=== PATIENT | male | born 1950 | race African-American/Black ===

== ENCOUNTER 2016-11-28 09:09 | Outpatient (CLI) | payer MEDICARE ==
[2016-11-28 12:33] LABS: #Basophils 0.1 thou/uL (0.0-0.2); #Eosinphils 0.1 thou/uL (0.0-0.7); #Lymphocytes 1.7 thou/uL (1.20-3.40); #Monocytes 0.5 thou/uL (0.11-0.59); #Neutrophils 1.9 thou/uL (1.40-6.50); %Basophils 1.2 % (0.0-1.0); %Eosinophils 3.2 % (0.0-10.0); %Lymphocytes 40.6 % (21.0-51.0); %Monocytes 10.6 % (0.0-10.0); Hematocrit 45.4 % (42.0-52.0); Mean Platelet Volume 9.3 fL (7.4-10.4); White Blood Cell (WBC) Count 4.3 thou/uL (4.8-10.8)
[2016-11-28 12:36] LABS: Prothrombin Time 14.4 SEC (12.0-14.7)
[2016-11-28 12:51] LABS: ALT (SGPT) 17 U/L (0-55); AST (SGOT) 16 U/L (5-34); Alkaline Phosphatase 203 U/L (40-150); Anion Gap 15 mmol/L (10-20); BUN (Urea Nitrogen) 22 mg/dL (8.4-25.7); Bilirubin, Direct 0.3 mg/dL (0.1-0.3); Bilirubin, Total 0.7 mg/dL (0.2-1.2); Calc. Creatinine Clearance 0 mL/min (70-130); Calcium 8.9 mg/dL (7.8-10.44); Carbon Dioxide 21 mmol/L (23-31); Chloride 109 mmol/L (98-107); Estimated GFR-MDRD 50; LDL Cholesterol, Calculated 87 mg/dL; Protein, Total 6.7 g/dL (5.8-8.1)
== END 2016-11-28 09:10 | disposition home or self-care (01) ==
LOC: NAVSJIPCSP 09:09 → EDSTATUS 11:19
PROVIDERS: ATTEND Family Medicine
DX: E11.9 Type 2 diabetes mellitus without complications (principal); E78.00 Pure hypercholesterolemia, unspecified; I10 Essential (primary) hypertension; Z79.899 Other long term (current) drug therapy
CPT/HCPCS: 36415; 80048; 80061; 80076; 83036; 84443; 85025; 85610

== ENCOUNTER 2016-12-28 16:28 | Inpatient (IN) | payer MEDICARE ==
[~2016-12-28 16:28] MED LIST: Iopamidol 370 76% 100 ML VIAL ONE
[2016-12-28] MEDS ORDERED: Ondansetron HCl/PF 4 MG/2 ML Vial ONE (17:38)
[2016-12-28] MEDS ORDERED: Ondansetron ODT 4 MG TAB ONE (18:10)
[2016-12-28 18:35] LABS: #Basophils 0.1 thou/uL (0.0-0.2); #Lymphocytes 0.5 thou/uL (1.20-3.40); #Monocytes 1.2 thou/uL (0.11-0.59); #Neutrophils 10.4 thou/uL (1.40-6.50); %Basophils 0.5 % (0.0-1.0); %Eosinophils 0.2 % (0.0-10.0); %Lymphocytes 4.1 % (21.0-51.0); %Monocytes 9.7 % (0.0-10.0); %Neutrophils 85.6 % (42.0-75.0); Hemoglobin 16.2 g/dL (14.0-18.0); Mean Corpuscular Hemoglobin 29.9 pg (27.0-31.0); Mean Corpuscular Volume 90.6 fl (80.0-94.0); Mean Platelet Volume 8.4 fL (7.4-10.4); Platelet Count 126 thou/uL (130-400); RBC Distribution Width 12.2 % (11.5-14.5); White Blood Cell (WBC) Count 12.2 thou/uL (4.8-10.8)
[2016-12-28 18:49] LABS: ALT (SGPT) 15 U/L (0-55); AST (SGOT) 12 U/L (5-34); Albumin 4.5 g/dL (3.4-4.8); Alkaline Phosphatase 161 U/L (40-150); Anion Gap 19 mmol/L (10-20); BUN (Urea Nitrogen) 17 mg/dL (8.4-25.7); Bilirubin, Total 0.9 mg/dL (0.2-1.2); Calc. Creatinine Clearance 0 mL/min (70-130); Calcium 9.4 mg/dL (7.8-10.44); Carbon Dioxide 18 mmol/L (23-31); Chloride 109 mmol/L (98-107); Estimated GFR-MDRD 49; Globulin 3.4 g/dL (2.4-3.5); Glucose 139 mg/dL (80-115); Lipase 21 U/L (8-78); Protein, Total 7.9 g/dL (5.8-8.1); Sodium 142 mmol/L (136-145)
--- NOTE | 2016-12-28 18:49 | RAD ---
ACUTE ABDOMINAL SERIES: 12/28/16 INDICATION: Nausea, vomiting. COMPARISON: None. FINDINGS: The lungs are clear. No pleural effusion or pneumothorax is evident. No pneumoperitoneum is evident. There are a few mildly prominent gas filled loops of small bowel within the central abdomen with di fferential air fluid levels which may reflect sequela of regional ileus or small bowel obstruction. CT examination is recommended for further evaluation. No acute osseous abnormality is evident. IMPRESSION: Reactive ileus versus mild to moderate partial small bowel obstruction. CT examination would be help ful for further evaluation. POS: [facility]
[2016-12-28 18:51] LABS: Troponin I Less than 0.010 ng/mL (< 0.028)
[2016-12-28 19:10] LABS: Bilirubin Negative (Negative); Blood, Urine Moderate (Negative); Glucose, Urine (Dipstick) Negative (Negative); Leukocyte Moderate (Negative); Nitrite Positive (Negative); Protein, Urine (Dipstick) Trace mg/dL (Neg-Trace); Urobilinogen 0.2 mg/dL (0.2-1.0); pH, Urine 5.5 (5.0-9.0)
[2016-12-28 19:11] LABS: Clarity SL HAZY (Clear)
[2016-12-28 19:12] LABS: Bacteria/HPF 4+ HPF (None Seen); Squamous Epithelial 0-3 HPF (0-3)
[2016-12-28] MEDS ORDERED: Sodium Chloride 0.9% 500 ML ONE (19:38)
--- NOTE | 2016-12-28 20:03 | CT ---
CT OF THE ABDOMEN AND PELVIS WITH IV CONTRAST 12/28/16 INDICATION: Concern for possible small bowel obstruction. COMPARISON: Acute abdominal series performed on 12/28/16. FINDINGS: The mildly prominent loops of small bowel are demonstrated in the current examination within the fiona tral abdomen. There is no upstream obstructive changes seen involving the proximal jejunum. There is bibasilar atelectasis. There are calcified granuloma within the spleen. Gallbladder is cont racted. The visualized pancreas is unremarkable. Adrenal glands appear within normal limits. The kidneys demonstrate bilateral renal cysts. No hydronephrosis is evident. There is a normal appendix in the right lower quadrant. The bladder wall is diffusely thickened. The prostate is enlarged. The rectum and perirectal soft tissues are unremarkable. There is scattered c olonic diverticula. The colon is largely decompressed. No pathologic enlarged lymph nodes are eviden t. There are mild scattered vascular calcifications. No suspicious osteolytic or osteoblastic lesions e vident. IMPRESSION: 1. Mildly prominent loops of small bowel within the central abdomen without transition zone or upstream obstructive changes may reflect a regional ileus from an enteritis. 2. Wall thickening involving the bladder may reflect changes of chronic bladder outlet obstruct ion. The prostate is enlarged. The overlying cystitis cannot be entirely excluded. 3. Bilateral renal cysts. 4. Findings of prior granulomatous disease. 5. Colonic diverticulosis. POS: [facility]
[2016-12-28] MEDS ORDERED: Sodium Chloride 0.9% 0 ML ONE (20:15)
[2016-12-28] MEDS ORDERED: cefTRIAXone\\ROCEPHIN 1 GM VIAL ONE (20:15)
[2016-12-28] MEDS ORDERED: Sodium Chloride 0.9% 100 ML ONE (20:15)
[2016-12-28] MEDS ORDERED: Acetaminophen 325 MG TAB PO PRN (21:39)
[2016-12-28] MEDS ORDERED: Ondansetron HCl/PF 4 MG/2 ML Vial IVP PRN (21:39)
[2016-12-28] MEDS ORDERED: Ondansetron ODT 4 MG TAB SL PRN (21:39)
[2016-12-28] MEDS ORDERED: Sodium Chloride 0.45% 1,000 ML IV SCH (21:45)
[2016-12-28] MEDS ORDERED: Dextrose 50% Abboject 50 ML SYRINGE IVP PRN (22:26)
[2016-12-28] MEDS ORDERED: HumaLOG 300 UNITS/3 ML VIAL SC PRN ×2 (22:26)
[2016-12-28] MEDS ORDERED: Dextrose 5% in Water 1,000 ML IV PRN (22:26)
[2016-12-28 23:05] LABS: INR-International Normal Ratio 1.1; Prothrombin Time 14.8 SEC (12.0-14.7)
[2016-12-28] MEDS ORDERED: Atorvastatin Calcium 20 MG TAB PO SCH (23:45)
[2016-12-28] MEDS ORDERED: Warfarin Sodium 5 MG TAB PO SCH (23:45)
[2016-12-29 00:02] VITALS: BMI 40.0
--- NOTE | 2016-12-29 07:21 | SS ---
DATE OF DISCHARGE: 12/29/2016 HISTORY OF PRESENT ILLNESS: Mr. Pedersen is a 66-year-old black male patient of mine that has actually missed his last 2 followup appointments with me. He has also missed several appointments with his specialist. The patient presented to the emergency room complaining of nausea, retching and rectal pain. He states he usually has 2 to 3 soft bowel movements every day, he only had 1 this morning and after that he has had significant problems. He became nauseated and started retching. Mid abdominal pain and some rectal pain and urgency. No fever. He states he has had some dysuria off and on with a history of enlarged prostate in the past was sometimes vomiting. He took some Dulcolax earlier. He was seen by Dr. Robert Hernandez in the ER, given some IV fluids, was able to control his nausea, but not his pain. He was somewhat constipated and found to have an early urinary tract infection. He was given IV Rocephin in the ER and was admitted. He was given some IV hydration and this morning when I am seeing him, he states he feels much better. He had a full meal at 4:00 this morning, he was very hungry and the family members and nurse found some food for him to eat. He tolerated that very well. He had a large bowel movement, states he feels much better. States he has no complaints and states he would like to go home. VITAL SIGNS: Vital signs this morning reveal blood pressure 177/84, pulse 91, respirations 19, O2 sat 97%, temperature 98.6. The patient is noted to be very noncompliant with his medications. His INR was 1.1. He is supposed to be taking his warfarin 5 mg daily, but he states he misses it quite a bit. PRESENT MEDICATIONS: 1. Warfarin 5 mg once a day at bedtime. 2. Diltiazem ER 240 mg once a day in the morning. 3. Spironolactone 25 mg once a day. 4. He is supposed to be on furosemide 20 mg once daily. 5. Potassium chloride extended release 20 mEq 2 tablets daily. 6. Simvastatin 40 mg every evening. 7. Metformin 500 mg extended release b.i.d. with meals. 8. Tamsulosin 0.4 mg once a day. 9. Duloxetine 30 mg daily. 10. The patient received Rocephin yesterday. PAST MEDICAL HISTORY: 1. Hypertension. 2. Diabetes type 2. 3. Hypercholesterolemia. 4. Asbestosis. 5. Benign prostatic hypertrophy. 6. History of pulmonary embolism. PAST SURGICAL HISTORY: Reveals the patient had a foot surgery on his fractured ankle in 2005. FAMILY HISTORY: Reveals the patient's mother with cancer. The patient's father with cancer. The patient does not have any children. Family history is positive for cancer. SOCIAL HISTORY: The patient does not smoke, does not drink, does not use drugs. His Pneumovax is today. ALLERGIES: The patient has no known drug allergies. REVIEW OF SYSTEMS: Reveal the patient has not had any fever or chills. Denies any night sweats or weight changes. Denies any headache, change in hearing or change in vision. He does complain of some fatigue, that was yesterday, but states he feels better today. The patient denies any cough, cold, congestion or productive sputum. The patient denies any edema, dyspnea on exertion, shortness of breath, chest pain, orthopnea, or claudication. The patient does admit to constipation, that was the reason why came in and nausea with retching , but no actual vomiting. Denies any dysphasia. Denies any melena, denies any hematemesis, denies any hematochezia. domingo the patient states he has off and on decreased stream, but has not had urinary retention. Denies any dysuria. Denies any incontinence. Musculoskeletal domingo the patient states he has no significant change in his joint pains or stiffness with arthritis. Denies any skin changes, jaundice or lesions. The patient states his allergies have been under pretty good control. Denies any dizziness, syncope, sensation loss or focal loss. PHYSICAL EXAMINATION: GENERAL: This is a well-developed, well-nourished, obese black male in no apparent distress at this time. He states he feels much better, he is back to his normal, would like to go home. HEENT: Reveals normocephalic, nontraumatic cranium. Pupils are equally round and reactive. Extraocular movements intact. Nose and throat are slightly dry. NECK: Supple, without mass, nodes or bruits. No jugular venous distention is noted. LUNGS: Chest is clear to auscultation. No rales, rhonchi or wheezes are heard. No cough is noted. HEART: Reveals a regular rate and rhythm without murmurs, gallops or rubs. ABDOMEN: Obese, soft, nontender, without organomegaly. Normal bowel sounds are present in all quadrants. No rebound or guarding is noted. No CVA tenderness is noted. : Deferred. EXTREMITIES: Reveal no clubbing, cyanosis or edema. Peripheral pulses are equal, no significant edema is noted. NEUROLOGIC: His exam is grossly unremarkable with no focal findings. IMPRESSION: 1. Mild urinary tract infection. 2. Nausea with retching, resolved. 3. Constipation, resolved. 4. Poor appetite because of the nausea and retching, resolved. 5. Hypertension. 6. Diabetes type 2. 7. Pulmonary embolism, supposedly on warfarin for which he has been noncompliant and his INR has been 1. We did address that. 8. Benign prostatic hypertrophy. 9. Asbestosis. 10. Hypercholesterolemia. 11. Urinary tract infection. PLAN: The patient will be discharged this morning. We will place him on Cipro 500 mg twice a day for his urinary tract infection or possibly BPH. He already has an appointment with me in a couple of weeks. 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 Ffollow up with his other specialists that he has seen in the past. SANDRA
[2016-12-29 07:29] VITALS: BP 122/72; TEMP 95.5
[2016-12-29] MEDS ORDERED: cefTRIAXone\\ROCEPHIN 1 GM in Sodium Chloride 0.9% 100 ML IVPB SCH (08:00)
[2016-12-29] MEDS ORDERED: Spironolactone 50 MG TAB PO SCH (08:00)
[2016-12-29] MEDS ORDERED: Potassium Chloride 20 MEQ TAB PO SCH (08:00)
[2016-12-29] MEDS ORDERED: Tamsulosin HCl 0.4 MG CAP PO SCH (09:00)
[2016-12-29] MEDS ORDERED: Docusate 100 MG CAP PO SCH (09:00)
[2016-12-29] MEDS ORDERED: Warfarin Sodium 5 MG TAB PO SCH (17:00)
[2016-12-29] MEDS ORDERED: Atorvastatin Calcium 20 MG TAB PO SCH (21:00)
== END 2016-12-29 10:35 | disposition home health service (06) | DRG 690 ==
LOC: NAV ERS 16:28 → NAV ACUTE 20:59
PROVIDERS: ADMIT Family Medicine; ATTEND Family Medicine
DX: N39.0 Urinary tract infection, site not specified (principal); I11.0 Hypertensive heart disease with heart failure; I50.9 Heart failure, unspecified; N40.1 Benign prostatic hyperplasia with lower urinary tract symptoms; R30.0 Dysuria; E11.9 Type 2 diabetes mellitus without complications; E78.5 Hyperlipidemia, unspecified; Z91.14 Patient's other noncompliance with medication regimen; E66.9 Obesity, unspecified; K59.00 Constipation, unspecified; Z86.711 Personal history of pulmonary embolism; J61 Pneumoconiosis due to asbestos and other mineral fibers; R11.2 Nausea with vomiting, unspecified
CPT/HCPCS: 36416; 74022; 74177; 80053; 81003; 81015; 82553; 83690; 84484; 85025; 85610; 87077; 87086; 87186; 96365; 36415-59; J0696; J2405; J7050; Q0162

== ENCOUNTER 2017-02-15 09:13 | Outpatient (CLI) | payer MEDICARE ==
[2017-02-15 12:33] LABS: #Eosinphils 0.1 thou/uL (0.0-0.7); #Lymphocytes 1.5 thou/uL (1.20-3.40); #Monocytes 0.5 thou/uL (0.11-0.59); #Neutrophils 1.9 thou/uL (1.40-6.50); %Basophils 0.9 % (0.0-1.0); %Eosinophils 2.3 % (0.0-10.0); %Lymphocytes 38.2 % (21.0-51.0); %Monocytes 11.1 % (0.0-10.0); %Neutrophils 47.5 % (42.0-75.0); Hemoglobin 14.4 g/dL (14.0-18.0); Mean Corpuscular HGB CONC 32.6 g/dL (32.0-36.0); Mean Corpuscular Volume 88.8 fl (80.0-94.0); Platelet Count 181 thou/uL (130-400); RBC Distribution Width 12.4 % (11.5-14.5); Red Blood Cell (RBC) Count 4.97 mill/uL (4.70-6.10)
[2017-02-15 13:07] LABS: ALT (SGPT) 14 U/L (8-55); AST (SGOT) 13 U/L (5-34); Albumin 4.2 g/dL (3.4-4.8); Alkaline Phosphatase 151 U/L (40-150); Anion Gap 16 mmol/L (10-20); BUN (Urea Nitrogen) 17 mg/dL (8.4-25.7); Bilirubin, Direct 0.3 mg/dL (0.1-0.3); Bilirubin, Total 0.7 mg/dL (0.2-1.2); Calc. Creatinine Clearance 0 mL/min (70-130); Carbon Dioxide 19 mmol/L (23-31); Cardiac Risk 4.8 (Less than 4.5); Chloride 109 mmol/L (98-107); Cholesterol 158 mg/dl (< 200 Desired); Estimated GFR-MDRD 53; Glucose 121 mg/dL (80-115); HDL Cholesterol 33 mg/dL (>60 Neg Risk); LDL Cholesterol, Calculated 96 mg/dL; Potassium 4.1 mmol/L (3.5-5.1); Protein, Total 7.1 g/dL (5.8-8.1); Sodium 140 mmol/L (136-145); Triglycerides 146 mg/dL (Less than 150)
[2017-02-15 13:34] LABS: Hemoglobin A1c 6.1 % (4.0-6.0)
[2017-02-15 13:44] LABS: INR-International Normal Ratio 1.1; Prothrombin Time 14.5 SEC (12.0-14.7)
== END 2017-02-15 09:14 | disposition home or self-care (01) ==
LOC: NAVSJIPCSP 09:13
PROVIDERS: ATTEND Family Medicine
DX: E78.00 Pure hypercholesterolemia, unspecified (principal); E11.9 Type 2 diabetes mellitus without complications; I10 Essential (primary) hypertension; Z79.899 Other long term (current) drug therapy
CPT/HCPCS: 36415; 80048; 80061; 80076; 83036; 84443; 85025; 85610

== ENCOUNTER 2017-04-30 15:38 | Emergency (ER) | payer OTHER, SELFPAY ==
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
== END 2017-04-30 17:30 | disposition home or self-care (01) ==
LOC: NAV ERS 15:38
DX: S16.1XXA Strain of muscle, fascia and tendon at neck level, initial encounter (principal); S29.012A Strain of muscle and tendon of back wall of thorax, initial encounter; E11.9 Type 2 diabetes mellitus without complications; E78.5 Hyperlipidemia, unspecified; I11.0 Hypertensive heart disease with heart failure; I50.9 Heart failure, unspecified; Z79.84 Long term (current) use of oral hypoglycemic drugs; Z79.01 Long term (current) use of anticoagulants; Z79.899 Other long term (current) drug therapy; V49.9XXA Car occupant (driver) (passenger) injured in unspecified traffic accident, initial encounter
CPT/HCPCS: 72125; 72128

== ENCOUNTER 2017-05-28 09:04 | Outpatient (CLI) | payer MEDICARE ==
[2017-05-28 12:53] LABS: #Eosinphils 0.1 thou/uL (0.0-0.7); #Lymphocytes 1.7 thou/uL (1.20-3.40); #Monocytes 0.4 thou/uL (0.11-0.59); %Basophils 1.1 % (0.0-1.0); %Eosinophils 2.2 % (0.0-10.0); %Lymphocytes 39.7 % (21.0-51.0); %Neutrophils 46.9 % (42.0-75.0); Hemoglobin 15.2 g/dL (14.0-18.0); Mean Corpuscular HGB CONC 32.9 g/dL (32.0-36.0); Mean Corpuscular Hemoglobin 29.6 pg (27.0-31.0); Mean Corpuscular Volume 89.9 fl (80.0-94.0); Mean Platelet Volume 8.5 fL (7.4-10.4); Platelet Count 157 thou/uL (130-400); RBC Distribution Width 11.9 % (11.5-14.5); Red Blood Cell (RBC) Count 5.13 mill/uL (4.70-6.10); White Blood Cell (WBC) Count 4.2 thou/uL (4.8-10.8)
[2017-05-28 13:12] LABS: ALT (SGPT) 19 U/L (8-55); AST (SGOT) 19 U/L (5-34); Albumin 4.2 g/dL (3.4-4.8); Alkaline Phosphatase 142 U/L (40-150); Anion Gap 15 mmol/L (10-20); BUN (Urea Nitrogen) 16 mg/dL (8.4-25.7); Bilirubin, Direct 0.3 mg/dL (0.1-0.3); Calc. Creatinine Clearance 0 mL/min (70-130); Calcium 9.2 mg/dL (7.8-10.44); Carbon Dioxide 20 mmol/L (23-31); Cardiac Risk 4.6 (Less than 4.5); Chloride 109 mmol/L (98-107); Cholesterol 151 mg/dl (< 200 Desired); Estimated GFR-MDRD 56; Glucose 122 mg/dL (80-115); HDL Cholesterol 33 mg/dL (>60 Neg Risk); LDL Cholesterol, Calculated 84 mg/dL; Potassium 4.1 mmol/L (3.5-5.1); Protein, Total 7.4 g/dL (5.8-8.1); Sodium 140 mmol/L (136-145); Triglycerides 171 mg/dL (Less than 150)
[2017-05-28 13:35] LABS: Bilirubin Negative (Negative); Blood, Urine Trace (Negative); Clarity Clear (Clear); Glucose, Urine (Dipstick) Negative (Negative); Leukocyte Negative (Negative); Nitrite Negative (Negative); Protein, Urine (Dipstick) Negative (Neg-Trace); Specific Gravity, Urine 1.015 (1.005-1.030); Urobilinogen 0.2 mg/dL (0.2-1.0); pH, Urine 5.5 (5.0-9.0)
[2017-05-28 13:36] LABS: Hemoglobin A1c 6.2 % (4.0-6.0)
[2017-05-28 13:59] LABS: Bacteria/HPF None Seen HPF (None Seen); RBC/HPF 0-3 HPF (0-3); Squamous Epithelial 0-3 HPF (0-3); WBC/HPF None Seen HPF (0-3)
[2017-05-28 16:32] LABS: INR-International Normal Ratio 1.1; Prothrombin Time 14.3 SEC (12.0-14.7)
== END 2017-05-28 09:05 | disposition home or self-care (01) ==
LOC: NAVSJIPCSP 09:04
PROVIDERS: ATTEND Family Medicine
DX: E11.9 Type 2 diabetes mellitus without complications (principal); I11.0 Hypertensive heart disease with heart failure; I50.9 Heart failure, unspecified; Z79.899 Other long term (current) drug therapy
CPT/HCPCS: 36415; 80048; 80061; 80076; 81003; 81015; 83036; 84443; 85025; 85610

== ENCOUNTER 2018-02-02 20:31 | Emergency (ER) | payer MEDICARE, OTHER | END 2018-02-02 21:35 | disposition home or self-care (01) | LOC: NAV ERS 20:31 | DX: N40.1 Benign prostatic hyperplasia with lower urinary tract symptoms (principal); R33.8 Other retention of urine; E11.9 Type 2 diabetes mellitus without complications; E78.5 Hyperlipidemia, unspecified; I11.0 Hypertensive heart disease with heart failure; I50.9 Heart failure, unspecified | CPT/HCPCS: 51703 ==

== ENCOUNTER 2018-08-29 10:44 | Outpatient (CLI) | payer MEDICARE ==
[2018-08-29 11:01] LABS: INR-International Normal Ratio 1.1; Prothrombin Time 14.5 SEC (12.0-14.7)
== END 2018-08-29 10:45 | disposition home or self-care (01) ==
LOC: NAV LABSP 10:44
PROVIDERS: ATTEND Nurse Practitioner Adult Health
DX: Z51.81 Encounter for therapeutic drug level monitoring (principal); I27.82 Chronic pulmonary embolism; I50.9 Heart failure, unspecified; Z79.899 Other long term (current) drug therapy; Z79.01 Long term (current) use of anticoagulants
CPT/HCPCS: 85610

== ENCOUNTER 2019-09-22 15:57 | Emergency (ER) | payer MEDICARE ==
[2019-09-22 16:56] LABS: ALT (SGPT) 27 U/L (8-55); AST (SGOT) 20 U/L (5-34); Albumin 4.4 g/dL (3.4-4.8); Alkaline Phosphatase 249 U/L (40-110); Anion Gap 15 mmol/L (10-20); BUN (Urea Nitrogen) 16 mg/dL (8.4-25.7); Bilirubin, Total 0.3 mg/dL (0.2-1.2); CK (CPK) 259 U/L (30-200); Calc. Creatinine Clearance 0 mL/min (70-130); Carbon Dioxide 22 mmol/L (23-31); Chloride 108 mmol/L (98-107); Estimated GFR-MDRD 50; Globulin 2.8 g/dL (2.4-3.5); Glucose 139 mg/dL (80-115); Potassium 3.8 mmol/L (3.5-5.1); Protein, Total 7.2 g/dL (5.8-8.1); Sodium 141 mmol/L (136-145)
[2019-09-22 17:13] LABS: Eosinophils 3 % (0-10); Hemoglobin 14.6 g/dL (14.0-18.0); Lymphocytes 38 % (21-51); MDiff Complete? YES; Mean Corpuscular Hemoglobin 29.9 pg (27.0-31.0); Mean Corpuscular Volume 90.6 fL (78.0-98.0); Mean Platelet Volume 8.7 fL (7.4-10.4); Monocytes 8 % (0-10); Neutrophil 49 % (42-75); Platelet Count 169 thou/uL (130-400); RBC Distribution Width 11.8 % (11.5-14.5); Reactive Lymphocytes 1 % (0-10); Red Blood Cell (RBC) Count 4.88 mill/uL (4.70-6.10); White Blood Cell (WBC) Count 4.3 thou/uL (4.8-10.8)
--- NOTE | 2019-09-22 18:01 | RAD ---
PORTABLE AP CHEST X-RAY: HISTORY: Shortness of breath and dyspnea. COMPARISON: 08/21/2016 FINDINGS: The cardiac silhouette is magnified by projection but stable in size. The pulmonary vasculature is wi thin normal limits. The left inferior costophrenic angle is incompletely imaged, but no large pleural effusion is seen. No consolidation is identified. No other interval change. IMPRESSION: No acute cardiopulmonary process. POS: [facility]
== END 2019-09-22 17:45 | disposition home or self-care (01) ==
LOC: NAV ERS 15:57
DX: R06.02 Shortness of breath (principal); I11.0 Hypertensive heart disease with heart failure; I50.9 Heart failure, unspecified; E11.9 Type 2 diabetes mellitus without complications; E78.5 Hyperlipidemia, unspecified; E78.00 Pure hypercholesterolemia, unspecified; Z79.899 Other long term (current) drug therapy
CPT/HCPCS: 71045; 80053; 82550; 83880; 84484; 85025; 85379; 93005

== ENCOUNTER 2021-03-09 08:00 | Emergency (ER) | payer MEDICARE ==
[2021-03-09 09:14] LABS: Hemoglobin 13.4 g/dL (14.0-18.0); Lymphocytes 23 % (21-51); MDiff Complete? YES; Mean Corpuscular HGB CONC 31.8 g/dL (32.0-36.0); Mean Corpuscular Hemoglobin 29.3 pg (27.0-31.0); Mean Corpuscular Volume 92.1 fL (78.0-98.0); Mean Platelet Volume 10.1 fL (7.4-10.4); Monocytes 13 % (0-10); Neutrophil 64 % (42-75); Platelet Count 143 thou/uL (130-400); Platelet Morphology Comment Appears Adequate; Red Blood Cell (RBC) Count 4.59 mill/uL (4.70-6.10); White Blood Cell (WBC) Count 3.9 thou/uL (4.8-10.8)
[2021-03-09 09:28] LABS: ALT (SGPT) 16 U/L (8-55); AST (SGOT) 13 U/L (5-34); Albumin 3.8 g/dL (3.4-4.8); Alkaline Phosphatase 160 U/L (40-110); Anion Gap 13 mmol/L (10-20); BUN (Urea Nitrogen) 8 mg/dL (8.4-25.7); Bilirubin, Total 0.8 mg/dL (0.2-1.2); Calc. Creatinine Clearance 0 mL/min (70-130); Calcium 8.2 mg/dL (7.8-10.44); Carbon Dioxide 22 mmol/L (23-31); Chloride 107 mmol/L (98-107); Globulin 2.6 g/dL (2.4-3.5); Glucose 245 mg/dL (83-110); Lipase 21 U/L (8-78); Potassium 3.6 mmol/L (3.5-5.1); Protein, Total 6.4 g/dL (5.8-8.1); Sodium 138 mmol/L (136-145)
[2021-03-09] MEDS ORDERED: Sodium Chloride 0.9% 1,000 ML ONE (09:39)
[2021-03-09] MEDS ORDERED: Pantoprazole 40 MG VIAL ONE (10:18)
[2021-03-09] MEDS ORDERED: Aspirin Chewable 81 MG TAB ONE (10:18)
[2021-03-09 10:49] LABS: Bilirubin Negative (Negative); Blood, Urine Trace (Negative); Clarity Clear (Clear); Glucose, Urine (Dipstick) 500 mg/dL (Negative); Ketone, Urine Negative (Negative); Leukocyte Negative (Negative); Nitrite Negative (Negative); Protein, Urine (Dipstick) Negative (Neg-Trace); Urobilinogen 0.2 mg/dL (Less than 2); pH, Urine 5.5 (5.0-9.0)
[2021-03-09] MEDS ORDERED: Sodium Chloride 0.9% 100 ML ONE (11:07)
[2021-03-09] MEDS ORDERED: Cefepime 2 GM VIAL ONE (11:07)
[2021-03-09 11:09] LABS: Bacteria/HPF Rare-Few HPF (None Seen); RBC/HPF 0-3 HPF (0-3); Squamous Epithelial None Seen HPF (0-3); WBC/HPF 0-3 HPF (0-3)
[2021-03-09 12:49] LABS: SARS-CoV-2 NAA Rapid Test DETECTED (NotDetected)
== END 2021-03-09 15:30 | disposition short-term general hospital (02) ==
LOC: NAV ERS 08:00
DX: A41.9 Sepsis, unspecified organism (principal); U07.1 COVID-19; R07.9 Chest pain, unspecified; I11.0 Hypertensive heart disease with heart failure; I50.9 Heart failure, unspecified; E11.9 Type 2 diabetes mellitus without complications; E78.5 Hyperlipidemia, unspecified; E78.00 Pure hypercholesterolemia, unspecified; Z79.84 Long term (current) use of oral hypoglycemic drugs; Z79.899 Other long term (current) drug therapy
CPT/HCPCS: 0240U; 71045; 74177; 80053; 83605; 83690; 83880; 84484 ×2; 85025; 85379; 87040; 93005; 96365; 96375; 99285; 81003; 81015; C9113; J0692; J3490; J7050

== ENCOUNTER 2021-03-16 21:11 | Inpatient (IN) | payer MEDICARE ==
[2021-03-16] MEDS ORDERED: Acetaminophen 325 MG TAB PO PRN (22:27)
[2021-03-16] MEDS ORDERED: Ondansetron ODT 4 MG TAB PO PRN (22:29)
[2021-03-16] MEDS ORDERED: Dextrose 5% in Water 1,000 ML IV PRN (22:30)
[2021-03-16] MEDS ORDERED: HumaLOG 300 UNITS/3 ML VIAL SC PRN (22:30)
[2021-03-16] MEDS ORDERED: Dextrose 50% Abboject 50 ML SYRINGE IVP PRN (22:30)
[2021-03-17] MEDS: HumaLOG 300 UNITS/3 ML VIAL SC PRN (05:20)
[2021-03-17 05:36] LABS: Anion Gap 14 mmol/L (10-20); BUN (Urea Nitrogen) 15 mg/dL (8.4-25.7); Calc. Creatinine Clearance 97 mL/min (70-130); Calcium 8.7 mg/dL (7.8-10.44); Carbon Dioxide 21 mmol/L (23-31); Chloride 105 mmol/L (98-107); Glucose 170 mg/dL (83-110); Potassium 3.8 mmol/L (3.5-5.1); Sodium 136 mmol/L (136-145)
[2021-03-17 05:38] LABS: Band 2 % (5-11); Hemoglobin 14.4 g/dL (14.0-18.0); Lymphocytes 43 % (21-51); MDiff Complete? YES; Mean Corpuscular HGB CONC 31.1 g/dL (32.0-36.0); Mean Corpuscular Hemoglobin 28.6 pg (27.0-31.0); Mean Platelet Volume 7.4 fL (7.4-10.4); Monocytes 9 % (0-10); Neutrophil 46 % (42-75); Platelet Count 234 thou/uL (130-400); Platelet Morphology Comment Appears Adequate; RBC Distribution Width 11.4 % (11.5-14.5); RBC Morphology Normal; Red Blood Cell (RBC) Count 5.04 mill/uL (4.70-6.10); White Blood Cell (WBC) Count 4.3 thou/uL (4.8-10.8)
[2021-03-17] MEDS: metFORMIN 500 MG TAB PO SCH ×2 (08:47→17:31)
[2021-03-17] MEDS: Finasteride 5 MG TAB PO SCH (08:47)
[2021-03-17] MEDS: Spironolactone 25 MG TAB PO SCH (08:47)
[2021-03-17] MEDS: Lisinopril 10 MG TAB PO SCH (08:47)
[2021-03-17] MEDS: Tamsulosin HCl 0.4 MG CAP PO SCH (08:47)
[2021-03-17] MEDS: Fluticasone Propionate Nasal Spray 16 gm Bottle NASAL SCH (08:48)
[2021-03-17] MEDS ORDERED: Loperamide HCl 2 MG CAP PO PRN (16:37)
[2021-03-17] MEDS: Atorvastatin Calcium 20 MG TAB PO SCH (21:12)
[2021-03-17] MEDS: Loratadine 10 MG TAB PO SCH (21:13)
[2021-03-17] MEDS: Melatonin 3 MG TAB PO PRN (21:33)
[2021-03-18] MEDS: Fluticasone Propionate Nasal Spray 16 gm Bottle NASAL SCH (08:14)
[2021-03-18] MEDS: metFORMIN 500 MG TAB PO SCH ×2 (08:16→16:59)
[2021-03-18] MEDS: Tamsulosin HCl 0.4 MG CAP PO SCH (08:16)
[2021-03-18] MEDS: Spironolactone 25 MG TAB PO SCH (08:16)
[2021-03-18] MEDS: Lisinopril 10 MG TAB PO SCH (08:17)
[2021-03-18] MEDS: Finasteride 5 MG TAB PO SCH (08:17)
[2021-03-18] MEDS: HumaLOG 300 UNITS/3 ML VIAL SC PRN ×2 (12:49→16:58)
[2021-03-18] MEDS: Loratadine 10 MG TAB PO SCH (21:12)
[2021-03-18] MEDS: Atorvastatin Calcium 20 MG TAB PO SCH (21:12)
[2021-03-18] MEDS: Melatonin 3 MG TAB PO PRN (21:12)
[2021-03-19] MEDS: metFORMIN 500 MG TAB PO SCH ×2 (08:41→16:40)
[2021-03-19] MEDS: Tamsulosin HCl 0.4 MG CAP PO SCH (08:42)
[2021-03-19] MEDS: Spironolactone 25 MG TAB PO SCH (08:42)
[2021-03-19] MEDS: Lisinopril 10 MG TAB PO SCH (08:42)
[2021-03-19] MEDS: Finasteride 5 MG TAB PO SCH (08:42)
[2021-03-19] MEDS: Fluticasone Propionate Nasal Spray 16 gm Bottle NASAL SCH (08:43)
[2021-03-19] MEDS: HumaLOG 300 UNITS/3 ML VIAL SC PRN ×2 (12:44→16:46)
[2021-03-19] MEDS: Melatonin 3 MG TAB PO PRN (20:55)
[2021-03-19] MEDS: Loratadine 10 MG TAB PO SCH (20:55)
[2021-03-19] MEDS: Atorvastatin Calcium 20 MG TAB PO SCH (20:55)
[2021-03-20 02:29] VITALS: BMI 41.1
[2021-03-20] MEDS: HumaLOG 300 UNITS/3 ML VIAL SC PRN ×2 (05:47→12:26)
[2021-03-20] MEDS: Tamsulosin HCl 0.4 MG CAP PO SCH (08:58)
[2021-03-20] MEDS: Spironolactone 25 MG TAB PO SCH (08:58)
[2021-03-20] MEDS: Finasteride 5 MG TAB PO SCH (08:58)
[2021-03-20] MEDS: metFORMIN 500 MG TAB PO SCH ×2 (08:58→17:34)
[2021-03-20] MEDS: Lisinopril 10 MG TAB PO SCH (08:59)
[2021-03-20] MEDS: Fluticasone Propionate Nasal Spray 16 gm Bottle NASAL SCH (08:59)
[2021-03-20] MEDS: Melatonin 3 MG TAB PO PRN (20:57)
[2021-03-20] MEDS: Atorvastatin Calcium 20 MG TAB PO SCH (20:57)
[2021-03-20] MEDS: Loratadine 10 MG TAB PO SCH (20:57)
[2021-03-21] MEDS: metFORMIN 500 MG TAB PO SCH ×2 (09:27→17:50)
[2021-03-21] MEDS: Tamsulosin HCl 0.4 MG CAP PO SCH (09:27)
[2021-03-21] MEDS: Spironolactone 25 MG TAB PO SCH (09:27)
[2021-03-21] MEDS: Finasteride 5 MG TAB PO SCH (09:27)
[2021-03-21] MEDS: Lisinopril 10 MG TAB PO SCH (09:28)
[2021-03-21] MEDS: Fluticasone Propionate Nasal Spray 16 gm Bottle NASAL SCH (09:31)
[2021-03-21] MEDS: Loratadine 10 MG TAB PO SCH (21:40)
[2021-03-21] MEDS: Atorvastatin Calcium 20 MG TAB PO SCH (21:40)
[2021-03-22] MEDS: HumaLOG 300 UNITS/3 ML VIAL SC PRN ×2 (05:58→13:30)
[2021-03-22] MEDS: Tamsulosin HCl 0.4 MG CAP PO SCH (09:00)
[2021-03-22] MEDS: metFORMIN 500 MG TAB PO SCH ×2 (09:00→18:08)
[2021-03-22] MEDS: Spironolactone 25 MG TAB PO SCH (09:01)
[2021-03-22] MEDS: Fluticasone Propionate Nasal Spray 16 gm Bottle NASAL SCH (09:01)
[2021-03-22] MEDS: Finasteride 5 MG TAB PO SCH (09:01)
[2021-03-22] MEDS: Lisinopril 10 MG TAB PO SCH (09:01)
[2021-03-22] MEDS: Loratadine 10 MG TAB PO SCH (20:58)
[2021-03-22] MEDS: Atorvastatin Calcium 20 MG TAB PO SCH (20:58)
[2021-03-22] MEDS: Melatonin 3 MG TAB PO PRN (20:58)
[2021-03-23] MEDS: HumaLOG 300 UNITS/3 ML VIAL SC PRN (06:12)
[2021-03-23] MEDS: Spironolactone 25 MG TAB PO SCH (09:51)
[2021-03-23] MEDS: Tamsulosin HCl 0.4 MG CAP PO SCH (09:52)
[2021-03-23] MEDS: Lisinopril 10 MG TAB PO SCH (09:52)
[2021-03-23] MEDS: metFORMIN 500 MG TAB PO SCH ×2 (09:52→16:28)
[2021-03-23] MEDS: Enoxaparin Sodium 40 MG/0.4 ML SYRINGE SC SCH (09:53)
[2021-03-23] MEDS: Finasteride 5 MG TAB PO SCH (09:53)
[2021-03-23] MEDS: Fluticasone Propionate Nasal Spray 16 gm Bottle NASAL SCH (09:55)
[2021-03-23] MEDS: Loratadine 10 MG TAB PO SCH (21:15)
[2021-03-23] MEDS: Melatonin 3 MG TAB PO PRN (21:15)
[2021-03-23] MEDS: Atorvastatin Calcium 20 MG TAB PO SCH (21:15)
[2021-03-24 05:26] LABS: #Eosinphils 0.1 thou/uL (0.0-0.7); #Lymphocytes 1.5 thou/uL (1.20-3.40); #Monocytes 0.5 thou/uL (0.11-0.59); #Neutrophils 1.8 thou/uL (1.40-6.50); %Basophils 0.9 % (0.0-1.0); %Eosinophils 2.1 % (0.0-10.0); %Lymphocytes 38.2 % (21.0-51.0); %Monocytes 12.9 % (0.0-10.0); %Neutrophils 45.9 % (42.0-75.0); Hemoglobin 13.7 g/dL (14.0-18.0); Mean Corpuscular HGB CONC 31.4 g/dL (32.0-36.0); Mean Corpuscular Hemoglobin 28.6 pg (27.0-31.0); Mean Corpuscular Volume 91.1 fL (78.0-98.0); Mean Platelet Volume 7.3 fL (7.4-10.4); Platelet Count 231 thou/uL (130-400); RBC Distribution Width 11.7 % (11.5-14.5); Red Blood Cell (RBC) Count 4.79 mill/uL (4.70-6.10); White Blood Cell (WBC) Count 3.9 thou/uL (4.8-10.8)
[2021-03-24 05:39] LABS: Anion Gap 13 mmol/L (10-20); BUN (Urea Nitrogen) 14 mg/dL (8.4-25.7); Calc. Creatinine Clearance 100 mL/min (70-130); Calcium 9.1 mg/dL (7.8-10.44); Carbon Dioxide 21 mmol/L (23-31); Chloride 106 mmol/L (98-107); Glucose 159 mg/dL (83-110); Potassium 3.9 mmol/L (3.5-5.1); Sodium 136 mmol/L (136-145)
[2021-03-24] MEDS: HumaLOG 300 UNITS/3 ML VIAL SC PRN ×2 (05:51→18:08)
[2021-03-24] MEDS: Spironolactone 25 MG TAB PO SCH (08:54)
[2021-03-24] MEDS: metFORMIN 500 MG TAB PO SCH ×2 (08:54→18:07)
[2021-03-24] MEDS: Finasteride 5 MG TAB PO SCH (08:54)
[2021-03-24] MEDS: Enoxaparin Sodium 40 MG/0.4 ML SYRINGE SC SCH (08:55)
[2021-03-24] MEDS: Tamsulosin HCl 0.4 MG CAP PO SCH (08:55)
[2021-03-24] MEDS: Fluticasone Propionate Nasal Spray 16 gm Bottle NASAL SCH (08:55)
[2021-03-24] MEDS: Lisinopril 10 MG TAB PO SCH (08:56)
[2021-03-24] MEDS: Melatonin 3 MG TAB PO PRN (20:37)
[2021-03-24] MEDS: Atorvastatin Calcium 20 MG TAB PO SCH (20:37)
[2021-03-24] MEDS: Loratadine 10 MG TAB PO SCH (20:37)
[2021-03-25] MEDS: Fluticasone Propionate Nasal Spray 16 gm Bottle NASAL SCH (08:44)
[2021-03-25] MEDS: Enoxaparin Sodium 40 MG/0.4 ML SYRINGE SC SCH (08:44)
[2021-03-25] MEDS: metFORMIN 500 MG TAB PO SCH ×2 (08:44→16:23)
[2021-03-25] MEDS: Finasteride 5 MG TAB PO SCH (08:44)
[2021-03-25] MEDS: Spironolactone 25 MG TAB PO SCH (08:44)
[2021-03-25] MEDS: Lisinopril 10 MG TAB PO SCH (08:46)
[2021-03-25] MEDS: Tamsulosin HCl 0.4 MG CAP PO SCH (08:46)
[2021-03-25] MEDS: HumaLOG 300 UNITS/3 ML VIAL SC PRN (16:24)
[2021-03-25] MEDS: Melatonin 3 MG TAB PO PRN (20:32)
[2021-03-25] MEDS: Atorvastatin Calcium 20 MG TAB PO SCH (20:32)
[2021-03-25] MEDS: Loratadine 10 MG TAB PO SCH (20:32)
[2021-03-26] MEDS: Fluticasone Propionate Nasal Spray 16 gm Bottle NASAL SCH (08:34)
[2021-03-26] MEDS: Spironolactone 25 MG TAB PO SCH (08:35)
[2021-03-26] MEDS: Enoxaparin Sodium 40 MG/0.4 ML SYRINGE SC SCH (08:35)
[2021-03-26] MEDS: metFORMIN 500 MG TAB PO SCH ×2 (08:35→17:42)
[2021-03-26] MEDS: Finasteride 5 MG TAB PO SCH (08:36)
[2021-03-26] MEDS: Lisinopril 10 MG TAB PO SCH (08:39)
[2021-03-26] MEDS: Tamsulosin HCl 0.4 MG CAP PO SCH (08:39)
[2021-03-26] MEDS: HumaLOG 300 UNITS/3 ML VIAL SC PRN (12:17)
[2021-03-26] MEDS: Atorvastatin Calcium 20 MG TAB PO SCH (20:03)
[2021-03-26] MEDS: Loratadine 10 MG TAB PO SCH (20:03)
[2021-03-26] MEDS: Melatonin 3 MG TAB PO PRN (20:06)
[2021-03-27] MEDS: Fluticasone Propionate Nasal Spray 16 gm Bottle NASAL SCH (08:26)
[2021-03-27] MEDS: Lisinopril 10 MG TAB PO SCH (08:27)
[2021-03-27] MEDS: Tamsulosin HCl 0.4 MG CAP PO SCH (08:27)
[2021-03-27] MEDS: Enoxaparin Sodium 40 MG/0.4 ML SYRINGE SC SCH (08:28)
[2021-03-27] MEDS: Spironolactone 25 MG TAB PO SCH (08:28)
[2021-03-27] MEDS: Finasteride 5 MG TAB PO SCH (08:28)
[2021-03-27] MEDS: metFORMIN 500 MG TAB PO SCH ×2 (08:28→17:07)
[2021-03-27] MEDS: Melatonin 3 MG TAB PO PRN (20:14)
[2021-03-27] MEDS: Atorvastatin Calcium 20 MG TAB PO SCH (20:14)
[2021-03-27] MEDS: Loratadine 10 MG TAB PO SCH (20:14)
[2021-03-28] MEDS: Spironolactone 25 MG TAB PO SCH (08:22)
[2021-03-28] MEDS: metFORMIN 500 MG TAB PO SCH ×2 (08:22→17:39)
[2021-03-28] MEDS: Finasteride 5 MG TAB PO SCH (08:23)
[2021-03-28] MEDS: Enoxaparin Sodium 40 MG/0.4 ML SYRINGE SC SCH (08:23)
[2021-03-28] MEDS: Fluticasone Propionate Nasal Spray 16 gm Bottle NASAL SCH (08:24)
[2021-03-28] MEDS: Lisinopril 10 MG TAB PO SCH (08:25)
[2021-03-28] MEDS: Tamsulosin HCl 0.4 MG CAP PO SCH (08:25)
[2021-03-28] MEDS: Atorvastatin Calcium 20 MG TAB PO SCH (20:04)
[2021-03-28] MEDS: Melatonin 3 MG TAB PO PRN (20:04)
[2021-03-28] MEDS: Loratadine 10 MG TAB PO SCH (20:04)
[2021-03-29] MEDS: metFORMIN 500 MG TAB PO SCH ×2 (08:41→18:09)
[2021-03-29] MEDS: Tamsulosin HCl 0.4 MG CAP PO SCH (08:41)
[2021-03-29] MEDS: Spironolactone 25 MG TAB PO SCH (08:41)
[2021-03-29] MEDS: Lisinopril 10 MG TAB PO SCH (08:42)
[2021-03-29] MEDS: Finasteride 5 MG TAB PO SCH (08:42)
[2021-03-29] MEDS: Fluticasone Propionate Nasal Spray 16 gm Bottle NASAL SCH (08:43)
[2021-03-29] MEDS: Enoxaparin Sodium 40 MG/0.4 ML SYRINGE SC SCH (08:43)
[2021-03-29] MEDS: Melatonin 3 MG TAB PO PRN (21:00)
[2021-03-29] MEDS: Loratadine 10 MG TAB PO SCH (21:00)
[2021-03-29] MEDS: Atorvastatin Calcium 20 MG TAB PO SCH (21:00)
[2021-03-30] MEDS: metFORMIN 500 MG TAB PO SCH ×2 (09:42→17:53)
[2021-03-30] MEDS: Lisinopril 10 MG TAB PO SCH (09:42)
[2021-03-30] MEDS: Tamsulosin HCl 0.4 MG CAP PO SCH (09:42)
[2021-03-30] MEDS: Finasteride 5 MG TAB PO SCH (09:42)
[2021-03-30] MEDS: Spironolactone 25 MG TAB PO SCH (09:42)
[2021-03-30] MEDS: Enoxaparin Sodium 40 MG/0.4 ML SYRINGE SC SCH (09:43)
[2021-03-30] MEDS: Fluticasone Propionate Nasal Spray 16 gm Bottle NASAL SCH (09:43)
[2021-03-30] MEDS: HumaLOG 300 UNITS/3 ML VIAL SC PRN (11:09)
[2021-03-30] MEDS: Atorvastatin Calcium 20 MG TAB PO SCH (20:56)
[2021-03-30] MEDS: Loratadine 10 MG TAB PO SCH (20:56)
[2021-03-30] MEDS: Melatonin 3 MG TAB PO PRN (20:56)
[2021-03-31] MEDS: Spironolactone 25 MG TAB PO SCH (09:29)
[2021-03-31] MEDS: Tamsulosin HCl 0.4 MG CAP PO SCH (09:29)
[2021-03-31] MEDS: Enoxaparin Sodium 40 MG/0.4 ML SYRINGE SC SCH (09:29)
[2021-03-31] MEDS: metFORMIN 500 MG TAB PO SCH ×2 (09:30→17:36)
[2021-03-31] MEDS: Lisinopril 10 MG TAB PO SCH (09:30)
[2021-03-31] MEDS: Finasteride 5 MG TAB PO SCH (09:30)
[2021-03-31] MEDS: Fluticasone Propionate Nasal Spray 16 gm Bottle NASAL SCH (09:30)
[2021-03-31] MEDS: Loratadine 10 MG TAB PO SCH (20:56)
[2021-03-31] MEDS: Melatonin 3 MG TAB PO PRN (20:56)
[2021-03-31] MEDS: Atorvastatin Calcium 20 MG TAB PO SCH (20:56)
[2021-04-01 08:12] VITALS: BP 110/75; TEMP 98.8
[2021-04-01] MEDS: metFORMIN 500 MG TAB PO SCH (08:44)
[2021-04-01] MEDS: Spironolactone 25 MG TAB PO SCH (08:44)
[2021-04-01] MEDS: Enoxaparin Sodium 40 MG/0.4 ML SYRINGE SC SCH (08:44)
[2021-04-01] MEDS: Lisinopril 10 MG TAB PO SCH (08:45)
[2021-04-01] MEDS: Fluticasone Propionate Nasal Spray 16 gm Bottle NASAL SCH (08:45)
[2021-04-01] MEDS: Tamsulosin HCl 0.4 MG CAP PO SCH (08:45)
[2021-04-01] MEDS: Finasteride 5 MG TAB PO SCH (08:45)
== END 2021-04-01 11:52 | disposition home health service (06) | DRG 948 ==
LOC: UNDOADMIN 21:11 → NAV ACUTE 21:11
PROVIDERS: ADMIT Family Medicine; ATTEND Family Medicine
DX: R53.1 Weakness (principal); I25.10 Atherosclerotic heart disease of native coronary artery without angina pectoris; I50.9 Heart failure, unspecified; N40.0 Benign prostatic hyperplasia without lower urinary tract symptoms; N18.2 Chronic kidney disease, stage 2 (mild); S96.919A Strain of unspecified muscle and tendon at ankle and foot level, unspecified foot, initial encounter; X58.XXXA Exposure to other specified factors, initial encounter; E11.22 Type 2 diabetes mellitus with diabetic chronic kidney disease; I51.3 Intracardiac thrombosis, not elsewhere classified; Z86.16 Personal history of COVID-19
CPT/HCPCS: 36416; 80048; 85025; 36415-59; J1650; J1815

== ENCOUNTER 2022-05-01 09:15 | Emergency (ER) | payer OTHER, MEDICARE ==
[2022-05-01 10:22] LABS: #Eosinphils 0.1 thou/uL (0.0-0.7); #Lymphocytes 1.2 thou/uL (1.20-3.40); #Monocytes 0.5 thou/uL (0.11-0.59); #Neutrophils 1.9 thou/uL (1.40-6.50); %Basophils 1.1 % (0.0-1.0); %Eosinophils 2.7 % (0.0-10.0); %Monocytes 13.3 % (0.0-10.0); Hemoglobin 13.7 g/dL (14.0-18.0); Mean Corpuscular HGB CONC 31.1 g/dL (32.0-36.0); Mean Corpuscular Hemoglobin 28.8 pg (27.0-31.0); Mean Corpuscular Volume 92.7 fL (78.0-98.0); Mean Platelet Volume 9.9 fL (7.4-10.4); Platelet Count 160 thou/uL (130-400); RBC Distribution Width 12.2 % (11.5-14.5); Red Blood Cell (RBC) Count 4.75 mill/uL (4.70-6.10); White Blood Cell (WBC) Count 3.7 thou/uL (4.8-10.8)
[2022-05-01] MEDS ORDERED: Sodium Chloride 0.9% 500 ML ONE (10:34)
[2022-05-01] MEDS ORDERED: Fentanyl 100 MCG/2 ML VIAL ONE (10:34)
[2022-05-01] MEDS ORDERED: Ketorolac Tromethamine 30 MG/ML VIAL ONE (10:34)
[2022-05-01 10:39] LABS: ALT (SGPT) 18 U/L (8-55); AST (SGOT) 13 U/L (5-34); Albumin 3.8 g/dL (3.4-4.8); Alkaline Phosphatase 179 U/L (40-110); Anion Gap 14 mmol/L (10-20); BUN (Urea Nitrogen) 15 mg/dL (8.4-25.7); Bilirubin, Total 0.6 mg/dL (0.2-1.2); Calc. Creatinine Clearance 0 mL/min (70-130); Calcium 8.8 mg/dL (7.8-10.44); Carbon Dioxide 21 mmol/L (23-31); Chloride 106 mmol/L (98-107); Estimated GFR 52; Globulin 2.8 g/dL (2.4-3.5); Glucose 172 mg/dL (83-110); Lipase 22 U/L (8-78); Potassium 3.5 mmol/L (3.5-5.1); Protein, Total 6.6 g/dL (5.8-8.1); Sodium 137 mmol/L (136-145)
== END 2022-05-01 11:49 | disposition home or self-care (01) ==
LOC: NAV ERS 09:15
DX: S30.1XXA Contusion of abdominal wall, initial encounter (principal); S20.213A Contusion of bilateral front wall of thorax, initial encounter; I11.0 Hypertensive heart disease with heart failure; I50.9 Heart failure, unspecified; E11.9 Type 2 diabetes mellitus without complications; E78.5 Hyperlipidemia, unspecified; Z79.899 Other long term (current) drug therapy; X58.XXXA Exposure to other specified factors, initial encounter
CPT/HCPCS: 71260; 74177; 80053; 83690; 85025; 96374; 96375; J1885; J3010; J7030; Q9967

== ENCOUNTER 2022-08-01 09:05 | Outpatient (CLI) | payer MEDICARE, OTHER | END 2022-08-01 09:06 | disposition home or self-care (01) | LOC: NAV RAD 09:05 | PROVIDERS: ATTEND Nurse Practitioner | DX: M79.644 Pain in right finger(s) (principal); M15.1 Heberden's nodes (with arthropathy); M25.841 Other specified joint disorders, right hand ==

== ENCOUNTER 2024-03-26 10:12 | Emergency (ER) | payer MEDICARE | END 2024-03-26 11:35 | disposition home or self-care (01) | LOC: NAV ERS 10:12 | DX: K12.1 Other forms of stomatitis (principal); J02.9 Acute pharyngitis, unspecified; E11.9 Type 2 diabetes mellitus without complications; I11.0 Hypertensive heart disease with heart failure; I50.9 Heart failure, unspecified; E78.00 Pure hypercholesterolemia, unspecified; Z79.899 Other long term (current) drug therapy; Z79.84 Long term (current) use of oral hypoglycemic drugs; Z79.4 Long term (current) use of insulin | CPT/HCPCS: 87081; 87430; 99283 ==

== ENCOUNTER 2024-07-24 12:41 | Inpatient (IN) | payer MEDICARE ==
[2024-07-24 13:24] LABS: #Basophils 0.1 thou/uL (0.0-0.2); #Eosinophils 0.1 thou/uL (0.0-0.7); #Lymphocytes 1.5 thou/uL (1.20-3.40); #Monocytes 0.3 thou/uL (0.11-0.59); #Neutrophils 2.3 thou/uL (1.40-6.50); %Basophils 0.9 % (0.0-1.0); %Eosinophils 1.6 % (0.0-10.0); %Lymphocytes 35.8 % (21.0-51.0); %Monocytes 7.2 % (0.0-10.0); %Neutrophils 54.4 % (42.0-75.0); Hematocrit 42.4 % (42.0-52.0); Mean Corpuscular Hemoglobin 29.4 pg (27.0-31.0); Mean Corpuscular Volume 89.1 fl (78.0-98.0); Mean Platelet Volume 8.6 fL (7.4-10.4); Platelet Count 186 10x3/uL (130-400); RBC Distribution Width 11.5 % (11.5-14.5); Red Blood Cell (RBC) Count 4.76 mill/uL (4.70-6.10); White Blood Cell (WBC) Count 4.3 10x3/uL (4.8-10.8)
[2024-07-24 13:40] LABS: Troponin I Less than 0.010 ng/mL (< 0.028)
[2024-07-24 13:42] LABS: ALT (SGPT) 15 U/L (8-55); AST (SGOT) 10 U/L (5-34); Albumin 3.7 g/dL (3.4-4.8); Alkaline Phosphatase 158 U/L (40-110); Anion Gap 13 mmol/L (10-20); BUN (Urea Nitrogen) 12 mg/dL (8.4-25.7); CK (CPK) 141 U/L (30-200); Calc. Creatinine Clearance 0 mL/min (70-130); Calcium 9.3 mg/dL (7.8-10.44); Carbon Dioxide 23 mmol/L (23-31); Chloride 109 mmol/L (98-107); Estimated GFR 49; Globulin 3.2 g/dL (2.4-3.5); Glucose 179 mg/dL (83-110); Magnesium 1.8 mg/dL (1.6-2.6); Potassium 3.2 mmol/L (3.5-5.1); Protein, Total 6.9 g/dL (5.8-8.1); Sodium 142 mmol/L (136-145)
[2024-07-24 14:29] LABS: Bilirubin Negative (Negative); Blood, Urine Trace (Negative); Clarity Clear (Clear); Glucose, Urine (Dipstick) Negative (Negative); Ketone, Urine Negative (Negative); Leukocyte Negative (Negative); Nitrite Negative (Negative); Protein, Urine (Dipstick) Negative (Neg-Trace); Specific Gravity, Urine 1.015 (1.005-1.030); Urobilinogen 0.2 mg/dL (Less than 2); pH, Urine 5.5 (5.0-9.0)
[2024-07-24 14:52] LABS: Bacteria/HPF 1+ HPF (None Seen); CAUTI Indications for Culture Alt mental st,lethar; RBC/HPF 0-3 HPF (0-3); Squamous Epithelial 0-3 HPF (0-3); WBC/HPF 0-3 HPF (0-3)
[2024-07-24 14:54] LABS: Urine Culture Reflex No No
[2024-07-24] MEDS ORDERED: Acetaminophen 325 MG TAB PO PRN (15:38)
[2024-07-24 17:22] VITALS: BMI 41.6
[2024-07-24 20:05] VITALS: BP 164/104; TEMP 97.5
[2024-07-24] MEDS: Heparin 5,000 UNITS/ML VIAL SC SCH (20:23)
[2024-07-24] MEDS: Famotidine 20 MG TAB PO SCH (20:24)
== END 2024-07-24 22:01 | disposition short-term general hospital (02) | DRG 683 ==
LOC: NAV ERS 12:41 → NAV ACUTE 16:46
PROVIDERS: ADMIT Student in an Organized Health Care Education/Training Program; ATTEND Student in an Organized Health Care Education/Training Program
DX: N17.9 Acute kidney failure, unspecified (principal); Z68.41 Body mass index [BMI] 40.0-44.9, adult; E86.0 Dehydration; M62.81 Muscle weakness (generalized); E87.6 Hypokalemia; E11.9 Type 2 diabetes mellitus without complications; N40.0 Benign prostatic hyperplasia without lower urinary tract symptoms; I50.9 Heart failure, unspecified; I25.10 Atherosclerotic heart disease of native coronary artery without angina pectoris; N18.9 Chronic kidney disease, unspecified; E11.22 Type 2 diabetes mellitus with diabetic chronic kidney disease; Z98.890 Other specified postprocedural states; R13.10 Dysphagia, unspecified; R53.1 Weakness; R62.7 Adult failure to thrive
CPT/HCPCS: 36416; 70450; 71045; 80053; 81001; 82550; 83605; 83735; 83880; 84484; 85025; 93005; 94760; 96360

== ENCOUNTER 2024-07-28 14:26 | Inpatient (IN) | payer MEDICARE ==
[2024-07-28] MEDS ORDERED: Acetaminophen 325 MG TAB PO PRN (16:07)
[2024-07-28] MEDS ORDERED: Dextrose 50% Abboject 50 ML SYRINGE SLOW IVP PRN (20:15)
[2024-07-28] MEDS ORDERED: Glucagon 1 MG/ML KIT IM PRN (20:15)
[2024-07-28] MEDS: Insulin Lispro 100 UNIT/ML 10 ML VIAL SC PRN (21:12)
[2024-07-28] MEDS: Loratadine 10 MG TAB PO SCH (21:14)
[2024-07-28] MEDS: Famotidine 20 MG TAB PO SCH (21:14)
[2024-07-28] MEDS: Enoxaparin 40 MG (0.4 mL) SYRINGE SC SCH (21:15)
[2024-07-28] MEDS: metFORMIN 500 MG TAB PO SCH (21:15)
[2024-07-28] MEDS: Simvastatin 40 MG TAB PO SCH (21:15)
[2024-07-29] MEDS: Insulin Lispro 100 UNIT/ML 10 ML VIAL SC PRN (05:42)
[2024-07-29 06:06] LABS: #Eosinophils 0.1 thou/uL (0.0-0.7); #Lymphocytes 1.1 thou/uL (1.20-3.40); #Monocytes 0.6 thou/uL (0.11-0.59); #Neutrophils 2.5 thou/uL (1.40-6.50); %Eosinophils 2.6 % (0.0-10.0); %Lymphocytes 25.4 % (21.0-51.0); %Monocytes 13.4 % (0.0-10.0); %Neutrophils 57.6 % (42.0-75.0); Hematocrit 38.4 % (42.0-52.0); Hemoglobin 13.2 g/dL (14.0-18.0); Mean Corpuscular HGB CONC 34.5 g/dL (32.0-36.0); Mean Corpuscular Hemoglobin 30.3 pg (27.0-31.0); Mean Corpuscular Volume 87.9 fl (78.0-98.0); Mean Platelet Volume 8.6 fL (7.4-10.4); Platelet Count 194 10x3/uL (130-400); RBC Distribution Width 11.1 % (11.5-14.5); Red Blood Cell (RBC) Count 4.37 mill/uL (4.70-6.10); White Blood Cell (WBC) Count 4.3 10x3/uL (4.8-10.8)
[2024-07-29 06:13] LABS: ALT (SGPT) 14 U/L (8-55); AST (SGOT) 9 U/L (5-34); Albumin 3.2 g/dL (3.4-4.8); Alkaline Phosphatase 103 U/L (40-110); Anion Gap 12 mmol/L (10-20); BUN (Urea Nitrogen) 12 mg/dL (8.4-25.7); Bilirubin, Total 0.8 mg/dL (0.2-1.2); Calc. Creatinine Clearance 98 mL/min (70-130); Calcium 8.4 mg/dL (7.8-10.44); Carbon Dioxide 24 mmol/L (23-31); Chloride 110 mmol/L (98-107); Estimated GFR 58; Globulin 3.1 g/dL (2.4-3.5); Glucose 159 mg/dL (83-110); Potassium 3.9 mmol/L (3.5-5.1); Protein, Total 6.3 g/dL (5.8-8.1); Sodium 142 mmol/L (136-145)
[2024-07-29] MEDS: dilTIAZem CD 240 MG CAP PO SCH (07:54)
[2024-07-29] MEDS: Acetaminophen 325 MG TAB PO PRN (07:59)
[2024-07-29] MEDS: Allopurinol 100 MG TAB PO SCH (07:59)
[2024-07-29] MEDS: Finasteride 5 MG TAB PO SCH (07:59)
[2024-07-29] MEDS: Losartan 50 MG TAB PO SCH (08:00)
[2024-07-29] MEDS: Tamsulosin HCl 0.4 MG CAP PO SCH (08:00)
[2024-07-29] MEDS: Spironolactone 25 MG TAB PO SCH (08:00)
[2024-07-29] MEDS: metFORMIN 500 MG TAB PO SCH (17:20)
[2024-07-29] MEDS: Atorvastatin Calcium 20 MG TAB PO SCH (21:11)
[2024-07-30] MEDS: Diclofenac 1% 100 GM Topical GEL TP SCH (08:40)
[2024-07-30] MEDS ORDERED: hydrALAZINE 10 MG TAB PO PRN (20:00)
[2024-08-01 06:10] LABS: #Eosinophils 0.1 thou/uL (0.0-0.7); #Lymphocytes 1.2 thou/uL (1.20-3.40); #Monocytes 0.5 thou/uL (0.11-0.59); #Neutrophils 2.2 thou/uL (1.40-6.50); %Basophils 1.1 % (0.0-1.0); %Eosinophils 2.8 % (0.0-10.0); %Lymphocytes 29.8 % (21.0-51.0); %Monocytes 12.9 % (0.0-10.0); %Neutrophils 53.4 % (42.0-75.0); Hematocrit 41.1 % (42.0-52.0); Hemoglobin 13.5 g/dL (14.0-18.0); Mean Corpuscular HGB CONC 32.8 g/dL (32.0-36.0); Mean Corpuscular Hemoglobin 29.3 pg (27.0-31.0); Mean Corpuscular Volume 89.2 fl (78.0-98.0); Platelet Count 232 10x3/uL (130-400); RBC Distribution Width 11.1 % (11.5-14.5); White Blood Cell (WBC) Count 4.1 10x3/uL (4.8-10.8)
[2024-08-01 06:28] LABS: ALT (SGPT) 23 U/L (8-55); AST (SGOT) 24 U/L (5-34); Albumin 3.4 g/dL (3.4-4.8); Alkaline Phosphatase 159 U/L (40-110); Anion Gap 14 mmol/L (10-20); BUN (Urea Nitrogen) 14 mg/dL (8.4-25.7); Bilirubin, Total 0.5 mg/dL (0.2-1.2); Calc. Creatinine Clearance 87 mL/min (70-130); Calcium 9.3 mg/dL (7.8-10.44); Carbon Dioxide 21 mmol/L (23-31); Chloride 107 mmol/L (98-107); Estimated GFR 51; Globulin 3.7 g/dL (2.4-3.5); Glucose 196 mg/dL (83-110); Potassium 3.6 mmol/L (3.5-5.1); Protein, Total 7.1 g/dL (5.8-8.1); Sodium 138 mmol/L (136-145)
[2024-08-04] MEDS: Semaglutide [Ozempic] 2 MG/0.75 ML Pen.Injctr SC SCH (08:08)
[2024-08-04] MEDS: Pantoprazole DR 40 MG TAB PO SCH (11:00)
[2024-08-05 06:43] LABS: ALT (SGPT) 29 U/L (8-55); AST (SGOT) 19 U/L (5-34); Albumin 3.5 g/dL (3.4-4.8); Alkaline Phosphatase 148 U/L (40-110); Anion Gap 14 mmol/L (10-20); BUN (Urea Nitrogen) 14 mg/dL (8.4-25.7); Bilirubin, Total 0.5 mg/dL (0.2-1.2); Calc. Creatinine Clearance 84 mL/min (70-130); Calcium 9.2 mg/dL (7.8-10.44); Carbon Dioxide 21 mmol/L (23-31); Chloride 107 mmol/L (98-107); Estimated GFR 53; Globulin 3.4 g/dL (2.4-3.5); Glucose 156 mg/dL (83-110); Potassium 3.7 mmol/L (3.5-5.1); Protein, Total 6.9 g/dL (5.8-8.1); Sodium 138 mmol/L (136-145)
[2024-08-05 12:42] LABS: #Eosinophils 0.1 thou/uL (0.0-0.7); #Lymphocytes 1.8 thou/uL (1.20-3.40); #Monocytes 0.4 thou/uL (0.11-0.59); %Basophils 0.9 % (0.0-1.0); %Eosinophils 1.9 % (0.0-10.0); %Lymphocytes 42.1 % (21.0-51.0); %Neutrophils 46.1 % (42.0-75.0); Hemoglobin 13.4 g/dL (14.0-18.0); Mean Corpuscular HGB CONC 32.7 g/dL (32.0-36.0); Mean Corpuscular Hemoglobin 29.2 pg (27.0-31.0); Mean Corpuscular Volume 89.1 fl (78.0-98.0); Mean Platelet Volume 6.9 fL (7.4-10.4); Platelet Count 261 10x3/uL (130-400); White Blood Cell (WBC) Count 4.4 10x3/uL (4.8-10.8)
[2024-08-07 15:55] VITALS: BMI 39.4
[2024-08-08 06:05] LABS: ALT (SGPT) 25 U/L (8-55); AST (SGOT) 18 U/L (5-34); Albumin 3.6 g/dL (3.4-4.8); Alkaline Phosphatase 130 U/L (40-110); Anion Gap 13 mmol/L (10-20); BUN (Urea Nitrogen) 13 mg/dL (8.4-25.7); Bilirubin, Total 0.6 mg/dL (0.2-1.2); Calc. Creatinine Clearance 85 mL/min (70-130); Calcium 9.1 mg/dL (7.8-10.44); Carbon Dioxide 23 mmol/L (23-31); Chloride 107 mmol/L (98-107); Estimated GFR 51; Globulin 2.9 g/dL (2.4-3.5); Glucose 148 mg/dL (83-110); Potassium 3.9 mmol/L (3.5-5.1); Protein, Total 6.5 g/dL (5.8-8.1); Sodium 139 mmol/L (136-145)
[2024-08-08] MEDS: Melatonin 3 MG TAB PO SCH (20:29)
[2024-08-09 05:33] VITALS: BMI 39.5
[2024-08-09 08:09] VITALS: BP 127/80; TEMP 97.7
== END 2024-08-09 09:20 | disposition home or self-care (01) | DRG 946 ==
LOC: NAV ACUTE 19:31
PROVIDERS: ADMIT Student in an Organized Health Care Education/Training Program; ATTEND Student in an Organized Health Care Education/Training Program
PROC: F07Z9ZZ Gait Training/Functional Ambulation Treatment (ICD-10-PCS; principal; 2024-08-04)
DX: R53.81 Other malaise (principal); E11.9 Type 2 diabetes mellitus without complications; N40.0 Benign prostatic hyperplasia without lower urinary tract symptoms; I11.0 Hypertensive heart disease with heart failure; F03.90 Unspecified dementia, unspecified severity, without behavioral disturbance, psychotic disturbance, mood disturbance, and anxiety; E78.5 Hyperlipidemia, unspecified; R13.10 Dysphagia, unspecified; M10.9 Gout, unspecified; I50.9 Heart failure, unspecified
CPT/HCPCS: 36416; 80053; 85025; 36415-59; J1650; J1815